=== PATIENT | female | born 1965 | race Caucasian/White ===

== ENCOUNTER 2016-12-09 04:50 | Day surgery (SDC) | payer BC ==
[2016-12-01 12:57] LABS: BASOPHILS 0.3 %; BASOPHILS ABSOLUTE 0.02 10/3/uL (0.0-0.16); EOSINOPHILS 1.4 %; EOSINOPHILS ABSOLUTE 0.11 10/3/uL (0.0-0.53); HEMATOCRIT 41.2 % (36.0-48.0); HEMOGLOBIN 13.9 g/dL (12.0-16.0); IMMATURE GRANULOCYTES 0.3 %; IMMATURE GRANULOCYTES ABSOLUTE 0.02 10/3/uL (0.0-0.11); LYMPHOCYTES 21.9 %; LYMPHOCYTES ABSOLUTE 1.71 10/3/uL (0.67-4.30); MANUAL DIFF NO %; MEAN CORPUS HGB CONC 33.7 g/dL (32.0-36.0); MEAN CORPUSCULAR HEMOGLOB 26.7 pg (26.0-34.0); MEAN CORPUSCULAR VOLUME 79.2 fL (80-100); MEAN PLATELET VOLUME 10.1 fL (9.2-13.0); MONOCYTES 5.1 %; NEUTROPHILS ABSOLUTE 5.56 10/3/uL (2.02-8.40); PLATELET COUNT 256 10/3/uL (150-400); RBC DISTRIBUTION WIDTH 13.2 % (12.0-16.0); WHITE BLOOD CELLS 7.8 10/3/uL (4.5-10.5)
[2016-12-01 13:12] LABS: A/G RATIO 1.1 (0.7-1.9); ALBUMIN 3.5 G/DL (3.5-5.0); ALKALINE PHOSPHATASE 116 U/L (45-117); BUN (BLOOD UREA NITROGEN) 10 MG/DL (6-23); CHLORIDE, SERUM 104 MMOL/L (96-112); CO2 (CARBON DIOXIDE) 29 MMOL/L (24-34); CREATININE 0.69 MG/DL (0.55-1.02); GFR AFRICAN AMERICAN 119 ML/MIN (>=60); GFR NON AFRICAN AMERICAN 103 ML/MIN (>=60); GLOBULIN 3.3 G/DL (2.5-4.1); GLUCOSE, SERUM 259 MG/DL (60-99); POTASSIUM, SERUM 4.2 MMOL/L (3.5-5.3); SGOT(AST) 15 U/L (5-40); SGPT(ALT) 26 U/L (5-65); SODIUM, SERUM 139 MMOL/L (135-148); TOTAL BILIRUBIN 0.7 MG/DL (0-1.2); TOTAL PROTEIN 6.8 G/DL (6.0-8.5)
--- NOTE | ~2016-12-09 | OP ---
Record Of Operation [facility] [address] [place]. [address] NAME: DEANA RAYMOND : 69 STATUS : [facility]#: [id number] AGE: 51 ADM/REG DATE : 12/09/16 MR#: [id number] REPORT SERV DATE: 12/10/16 DICTATED BY: DONATO ASHRAF DATE: 12/09/16 REPORT STATUS : Draft TRANSCRIBED BY: MODLiz DATE: 12/09/16 DATE OF PROCEDURE: 12/09/2016 PREOPERATIVE DIAGNOSIS: Cholelithiasis. POSTOPERATIVE DIAGNOSES: Cholelithiasis plus chronic cholecystitis. PROCEDURE PERFORMED: Laparoscopic cholecystectomy. SURGEON: Donato Ashraf M.D. ANESTHESIA: General. ESTIMATED BLOOD LOSS: 5 mL. SPECIMENS REMOVED: One gallbladder. BRIEF HISTORY: Ms. Raymond is a 51-year-old female, who experiences epigastric right upper quadrant abdominal pain. Outpatient imaging confirmed presence of gallstones. She presents for cholecystectomy. FINDINGS AT THE TIME OF PROCEDURE: Ms. Raymond's gallbladder was pale and distended and had minimal chronic inflammation. Limited examination of her liver, stomach, small and large bowel revealed no other obvious abnormalities. DETAILS: Following informed consent, the patient was taken to the operating room and placed supine on the OR table. After successful induction of general endotracheal anesthesia, her abdomen was prepped and draped in usual sterile fashion. An umbilical skin incision was made and skin hooks were used to elevate the skin edges and anterior rectus fascia. There was a small umbilical hernia defect, and we were able to use this as a portal of entry into the abdominal cavity. A non-bladed 5 mm trocar was then inserted through this orifice and connected to insufflation tubing, and the peritoneal cavity was insufflated with carbon dioxide to a resting pressure of 15 mmHg. A 5 mm laparoscope was then introduced. The underlying bowel and vascular structures were carefully inspected and noted to be free from injury from initial trocar insertion. Three additional trocars were placed under direct visualization, a 10 mm subxiphoid epigastric trocar followed by two 5 mm trocars placed in the right upper quadrant. The gallbladder was grasped at its fundus and retracted in lateral and cephalad direction toward the patient's right shoulder blade. The infundibulum of the gallbladder was grasped and retracted inferiorly and laterally toward the patient's right anterior superior iliac spine. Cystic duct and cystic artery were dissected free from the underlying fatty peritoneal structures and once a critical view of safety was obtained and both these structures were seen to clearly transverse into the infundibulum of the gallbladder, they were both triply clipped and ligated, and divided with scissors. The gallbladder was then dissected free from the gallbladder fossa using blunt dissection and cautery. It was placed inside an endoscopic retrieval pouch and removed from the 10 mm trocar site, intact, and without incident. Gallbladder fossa was copiously irrigated. Record Of Operation [facility] [address] [place]. [address] NAME: DEANA RAYMOND : 69 STATUS : [facility]#: [id number] AGE: 51 ADM/REG DATE : 12/09/16 MR#: [id number] REPORT SERV DATE: 12/10/16 DICTATED BY: DONATO ASHRAF DATE: 12/09/16 REPORT STATUS : Draft TRANSCRIBED BY: MODL DATE: 12/09/16 Hemostasis was secured with cautery and there was no evidence of bile leakage from the gallbladder fossa or cystic duct stump. The two 5 mm trocars were removed followed by the 10 mm subxiphoid trocar. The sites were observed. Hemostasis was found to be secured. The peritoneal cavity was desufflated. Laparoscope was removed. Fascia at the 10 mm umbilical trocars were approximated using 0 Vicryl suture. Skin edges of all four incisions were approximated using 4-0 Monocryl subcuticular suture and Dermabond. At the completion of the case, all sponge and needle counts were correct. The patient was extubated and transferred to recovery room in satisfactory condition, having suffered no apparent perioperative complications. SAQIB/ALINA Donato Ashraf M.D. / [id number] CC: Meghan Seay M.D.
[~2016-12-09 04:50] MED LIST: GLUMETZA500 MG PO; JANUVIA100 MG PO; SINGULAIR1 PO; ZANTAC150 MG PO; ZYRTEC ALLGY10 MG PO
== END 2016-12-09 13:32 | disposition home or self-care (01) ==
LOC: SDC 04:50
PROVIDERS: Surgery
PROC: 0FT44ZZ Resection of Gallbladder, Percutaneous Endoscopic Approach (ICD-10-PCS; principal; 2016-12-09 07:00)
DX: K80.10 Calculus of gallbladder with chronic cholecystitis without obstruction (principal); E66.01 Morbid (severe) obesity due to excess calories; E11.9 Type 2 diabetes mellitus without complications; Z88.2 Allergy status to sulfonamides
CPT/HCPCS: 80053; 82962; 84703; 85025; 88304; A9270-GY; J0690; J1885; J2250; J2405; J2550; J3010; Q9967